=== PATIENT | male | born 1965 | race Native Hawaiian/Other Pacific Islander ===

== ENCOUNTER → 2017-06-29 | Outpatient (CLI) | payer OTHER ==
--- NOTE | 2017-06-29 10:06 | US ---
EXAMINATION TYPE: US gallbladder DATE OF EXAM: 06/29/2017 COMPARISON: NONE CLINICAL HISTORY: R10.13 EPIGASTRIC PAIN. RUQ pain x 1 year EXAM MEASUREMENTS: Liver Length: 13 cm Gallbladder Wall: 0.5 cm CBD: 0.4 cm Right Kidney: 9.6 x 5.7 x 5.4 cm Pancreas: wnl Liver: There is poor visualization of the portal triads with hyperechoic hepatic echotexture. This li mits evaluation for hepatic masses. Gallbladder: struggled to see initially; appears contracted with possible gallbladder wall thickenin g and internal debris, pt states npo x 12 hours. l Evidence for sonographic Dasilva's sign: No CBD: wnl Right Kidney: No hydronephrosis or masses seen IMPRESSION: 1. The gallbladder is extremely contracted. There is questionable wall thickening and internal debris despite no sonographic Dasilva sign and the normal-appearing common bile duct. HIDA scan is therefore recommended to evaluate for cholecystitis. 2. Hyperechoic hepatic echotexture most commonly related to hepatic steatosis. This appears mild in d egree. Correlate with LFTs.
== END | disposition home or self-care (01) ==
LOC: RADUSWWP 09:18
PROVIDERS: ATTEND Internal Medicine Gastroenterology
DX: R93.3 Abnormal findings on diagnostic imaging of other parts of digestive tract (principal); R10.13 Epigastric pain
CPT/HCPCS: 76705